=== PATIENT | male | born 1960 | race Caucasian/White ===

== ENCOUNTER 2021-05-05 14:22 | Inpatient (IN) | payer OTHER ==
[~2021-05-05] VITALS: Ht 182.9 cm; Wt 126.9 kg
[2021-05-05 14:52] VITALS: BP 115/82
[2021-05-05 15:17] LABS: ABSOLUTE NEUTROPHILS 8.7 thou/uL (1.4-8.2); BASOPHILS 1.1 % (0.0-2.0); EOSINOPHILS 1.1 % (0.0-3.0); HEMATOCRIT 36.7 % (42.0-52.0); HEMOGLOBIN 11.9 gm/dL (14.0-18.0); LYMPHOCYTES 15.6 % (24.0-44.0); MCH 28.5 pg (26.0-34.0); MCHC 32.4 g/dL (28.0-37.0); MCV 87.9 fL (80.0-100.0); MONOCYTES 3.5 % (1.0-8.0); PLATELET COUNT 437 thou/uL (150-400); POLYS 78.7 % (36.0-66.0); RBC 4.18 mil/uL (4.50-6.00); RDW 14.8 % (10.5-14.5); WBC 11.1 thou/uL (4.0-11.0)
[2021-05-05 15:30] LABS: CALCIUM 9.3 mg/dL (8.5-10.1); CREATININE 1.1 mg/dL (0.7-1.3); POTASSIUM 4.3 mmol/L (3.5-5.1)
[2021-05-05 15:33] LABS: ALBUMIN 2.9 g/dL (3.4-5.0)
[2021-05-05 16:17] LABS: TOTAL BILIRUBIN 0.1 mg/dL (0.2-1.0); TOTAL PROTEIN 7.9 g/dL (6.4-8.2)
[2021-05-05] MEDS ORDERED: CITALOPRAM HBR40 MG PO (17:25)
[2021-05-05 18:18] VITALS: BP 145/78
[2021-05-05 18:24] VITALS: BP 145/78
[2021-05-05 18:25] LABS: FOLIC ACID 15.1 ng/mL (8.6-58.9)
[2021-05-05 21:28] VITALS: BP 163/76
[2021-05-06 01:58] LABS: ABSOLUTE NEUTROPHILS 6.1 thou/uL (1.4-8.2); BASOPHILS 0.8 % (0.0-2.0); EOSINOPHILS 1.2 % (0.0-3.0); HEMATOCRIT 32.3 % (42.0-52.0); HEMOGLOBIN 10.5 gm/dL (14.0-18.0); MCH 28.5 pg (26.0-34.0); MCHC 32.5 g/dL (28.0-37.0); MCV 87.7 fL (80.0-100.0); MONOCYTES 4.8 % (1.0-8.0); POLYS 74.2 % (36.0-66.0); RBC 3.68 mil/uL (4.50-6.00); RDW 14.7 % (10.5-14.5); WBC 8.3 thou/uL (4.0-11.0)
[2021-05-06 02:11] LABS: CALCIUM 8.7 mg/dL (8.5-10.1); CREATININE 1.1 mg/dL (0.7-1.3); POTASSIUM 4.4 mmol/L (3.5-5.1)
[2021-05-06 02:13] LABS: PLATELET COUNT 351 thou/uL (150-400)
[2021-05-06 02:14] LABS: MAGNESIUM 0.8 mg/dL (1.8-2.4)
[2021-05-06 07:15] VITALS: BP 161/96
[2021-05-06 09:04] VITALS: BP 165/87
[2021-05-06 13:11] VITALS: BP 166/75
--- NOTE | 2021-05-06 15:48 | NUR ---
ASSUMED CARE OF PT AT 1304 THIS AFTERNOON. PT CAME UP FROM ER. PT IS A/OX4 WITH DIABETIC ALCERATIONS ON BILAT FEET. PARTIAL AMPUTAIONS ON LT FOOT AND CELLULITIS IN BILAT FEET. NO SCD'S DUE TO LEG WOUNDS. NO PAIN AT THIS TIME. ASSESSMENTS PERFORMED BY JAY ARMIJO. MEDS AND TX GIVEN NEEDED AND SWCHEDULED. CARE PLAN CREATED BY JAY ARMIJO AND IMPLEMENTED. PT IS UP INDEP AND NO FALL PRECAUTIONS ARE NEEDED. WILL CONTINUE TO MONITOR AND NOTE ANY CHANGES.
[2021-05-06 20:15] VITALS: BP 141/81
--- NOTE | 2021-05-07 04:54 | NUR ---
ASSUMED CARE AT 1915 OF 05/06. PATIENT IS A&OX4, DENIES PAIN OR SHORTNESS OF BREATH. ON IV ABX THERAPY FOR BILAT CELLULITIS OF FEET. DRESSING TO BILAT FEET ARE IN PLACE AND INTACT. PERIPHERAL IV SITE ON LEFT FOREARM IS INPLACE AND INTACT. NO S/S OF INFECTION OR INFILTRATION NOTED. PATIENTIS UP AD JARED IN ROOM AND HAS CALLED APPROPRIETLY FOR ANY NEEDS. TOLERATED ORAL MEDICATIONS WHOLE WITH THIN LIQUIDS. FALL PRECAUTIONS IN PLACE, CALL LIGHT WITHIN REACH. WILL CONTINUE TO MONITOR.
[2021-05-07 07:10] VITALS: BP 152/82
[2021-05-07 16:10] VITALS: BP 132/74
--- NOTE | 2021-05-07 19:32 | NUR ---
PT DENIES PAIN/DISCOMFORT. UP IN ROOM AD JARED. ABLE TO MAKE NEEDS KNOWN. NO ISSUES THIS SHIFT. CONTINUES WITH IV ATB'S
[2021-05-07 20:30] VITALS: BP 121/74
--- NOTE | 2021-05-08 03:56 | NUR ---
PT BEEN RESTING IN NO ACUTE DISTRESS.A/OX4.VSS.ON IV ANTIBIOTIC THERAPY FO JOVANNA LEGS CELLULITES.TOLERATING.DRESSING CDI TO JOVANNA FEET.ASSESSMENT COMPLETED DOCUMENTED.
[2021-05-08 07:00] VITALS: BP 143/76
--- NOTE | 2021-05-08 18:07 | NUR ---
PT RESTED COMFORTABLE IN BED THROUGHOUT SHIFT. TURNS SELF AND IS UP ADLIB ABLE TO GET TO RESTROOM WITHOUT ISSUE. DRESSING CHANGED ON BOTH FEET PER ORDER. INSULIN WAS INCREASED TO MODERATE SCALE PER PROTOCAL, ALSO ADDITIONAL LANTUS GIVING PER ORDERS. PT TOLERATED WELL WITHOUT ISSUES. PATIENT DENIED ANYU COMPLAINTS THROUGHOUT THE SHIFT.
[2021-05-08 19:07] VITALS: BP 139/72
[2021-05-09 04:23] VITALS: BP 141/68
--- NOTE | 2021-05-09 07:46 | NUR ---
ASSUMED CARE AT 1900, PT LAYING IN BED COMFORTABLY, REPORTS NO PAIN OR DISCOMFORT, IV INITAITED ON THE LEFT FOREARM, TOLARATED PROCEDURE WELL, COMPLIANT TO TX, NO ADVERSE REACTION, UP AD JARED, WOUND CARE COMPLETED, PENDING US, CALL LIGHT, AND PERSONAL BELONGINGS WITHIN REACH, MAKES NEEDS KNOWN, SLEPT THROUGH THE NIGHT WILL CONTINUE TO MONITOR.
[2021-05-09 08:14] VITALS: BP 129/83
--- NOTE | 2021-05-09 09:43 | NUR ---
Noted he was up in room adlib. no complaints voiced. He was being seen by outpt wound clinic. He is able to make his needs known. C & S still pending. Possible going to have I & D sun or sunday. Will cont following if needs arise.
--- NOTE | 2021-05-09 11:48 | HC ---
[facility] [place] [address] CONSULTATION Name: NANCY LEYVA Room #: 433-I ADM IN [facility].#: [id number] Admission: 05/05/21 Attend Phys: Wicho Loyd MD Discharge: Date of : 64 Report #: [id number] THIS REPORT FOR: cc: FAM - Family physician unknown FAM - Family physician unknown Clint Dixon MD ~ DATE OF SERVICE: 05/06/2021 CHIEF COMPLAINT: Diabetic foot infection. HISTORY OF PRESENT ILLNESS: This is a 61-year-old male patient who I saw in the wound clinic yesterday for the first time with progression of ulceration, necrosis and cellulitis of the left foot. He has had chronic ulceration on the plantar aspect and has developed increasing breakdown and drainage on the medial first MTP. He also has a neuropathic ulcer on the plantar aspect of the right foot. He denies pain, some very mild fever or chills at this time. He believes his diabetes has not been well controlled. PAST MEDICAL HISTORY: Positive for type 2 diabetes mellitus, borderline hypertension. He has had 2 prior surgical amputations of the 4th toes on both feet. MEDICATIONS: Include citalopram. ALLERGIES: PENICILLIN AND TETANUS AND DIPHTHERIA TOXOID. SOCIAL HISTORY: The patient is a nonsmoker. Admits to occasional alcohol consumption. FAMILY HISTORY: Noncontributory. REVIEW OF SYSTEMS: CONSTITUTIONAL: The patient denies fever, chills, or weight loss. NEUROLOGICAL: The patient denies focal weakness, numbness, or tingling, but does have neuropathy in both feet. EYES: The patient denies visual changes, redness, or drainage. ENT: The patient denies earache, nasal drainage, or sore throat. CARDIOVASCULAR: The patient denies chest pain, palpitations, or diaphoresis. PULMONARY: The patient denies cough or shortness of breath. GASTROINTESTINAL: The patient denies nausea, vomiting, diarrhea or abdominal pain. ORTHOPEDIC: The patient complains of drainage, redness, odor and ulceration to both feet, left greater than right. Others systems in a 14-point review of systems are negative. PHYSICAL EXAMINATION: [facility] [address] [place] [address] CONSULTATION Name: NANCY LEYVA Room #: 433-I [facility] IN [facility]#: [id number] Admission: 05/05/21 Attend Phys: Wicho Loyd MD Discharge: Date of : 64 Report #: [id number] VITAL SIGNS: Include temperature of 96.6, pulse 84, respiratory rate of 14, blood pressure 151/84. GENERAL: This is a well-developed, well-nourished patient, who appears to be in mild discomfort. HEENT: Head normocephalic. Nose and throat are clear. NECK: Supple. ABDOMEN: Soft, bowel sounds present. EXTREMITIES: Lower extremities demonstrate easily palpable distal pulses. Normal hair growth pattern. There is an ulceration on the plantar aspect of the right foot. There was callus yesterday which I pared back. There is no exposure of deep structures here. It is clean, granulating and no evidence of overt infection. The left foot, however, demonstrates a plantar ulcer as well as an ulceration with tissue necrosis involving the medial aspect of the first MTP region. Debridement was performed in the office yesterday. Outpatient culture was obtained, results are pending. There is a bit improvement in both the redness on the foot as well as the drainage and the appearance of a few buds of granulation tissue on the medial left foot today compared to yesterday. LABORATORY STUDIES: Include sodium 135, potassium 4.4, chloride 99, CO2 27, BUN 15, creatinine 1.1, glucose 271. White blood cell count 8.3 with a hemoglobin of 10.5. CT scan of the left lower extremity demonstrates induration and edema of the surrounding subcutaneous fat at the plantar mid foot towards the first MTP, suggestive of cellulitis. No fluid collection or soft tissue gas, nonspecific tenosynovitis. No evidence of periostitis or bony destruction. CLINICAL IMPRESSION: 1. Haile grade 3 diabetic ulceration to the left foot with surrounding cellulitis and wound infection and possible tenosynovitis. 2. Diabetic neuropathic ulcer, right foot, Haile grade 2. 3. Diabetes mellitus with hyperglycemia. 4. Morbid obesity. 5. Possible obstructive sleep apnea. RECOMMENDATIONS: At this point in time, we will start with topical gentamicin ointment, Xeroform, ABD, Kerlix and Bar wrap to both lower extremity ulcers. Empiric antibiotics have been started. Cultures are pending. We will appreciate Infectious Disease consultation. Hopefully, we can get the infection under better control and then continue with outpatient management on oral antibiotic. I appreciate being asked to see him and continue to follow him here in the hospital. <ELECTRONICALLY SIGNED> By: Clint Dixon MD 05/09/21 1148 [id number] 22 Clint Dixon MD /nt
--- NOTE | 2021-05-09 15:20 | NUR ---
ASSUMED PT CARE THIS AM. PT A&OX4, ABLE TO MAKE NEEDS KNOWN. PATIENT REMAINS CONTINENT AND IS UP AD JARED. PATIENT HAS DRESSINGS TO BILATERAL FEET THAT ARE C/D/I. PATIENT IV REMAINS PATENT. CALL LIGHT WITHIN REACH.
[2021-05-09 16:00] VITALS: BP 101/81
[2021-05-09 16:27] VITALS: BP 118/71
[2021-05-09 17:48] VITALS: BP 115/55
[2021-05-09 21:55] VITALS: BP 112/71
--- NOTE | 2021-05-10 04:47 | NUR ---
RECEIVED CARE OF THIS PATIENT AT 1900. PATIENT ALERT AND ORIENTED X4. UP AD JARED. DRESSING ON FEET D/I. C/O PAIN IN FEET, MED GIVEN.ACCUCHECK WAS 175. SLEPT MOST OF NIGHT.
[2021-05-10 05:53] LABS: ABSOLUTE NEUTROPHILS 4.6 thou/uL (1.4-8.2); BASOPHILS 0.8 % (0.0-2.0); EOSINOPHILS 1.1 % (0.0-3.0); HEMATOCRIT 34.2 % (42.0-52.0); HEMOGLOBIN 10.9 gm/dL (14.0-18.0); LYMPHOCYTES 20.7 % (24.0-44.0); MCH 28.1 pg (26.0-34.0); MCHC 31.9 g/dL (28.0-37.0); MCV 87.8 fL (80.0-100.0); MONOCYTES 6.2 % (1.0-8.0); PLATELET COUNT 328 thou/uL (150-400); POLYS 71.2 % (36.0-66.0); RBC 3.89 mil/uL (4.50-6.00); RDW 14.7 % (10.5-14.5); WBC 6.5 thou/uL (4.0-11.0)
[2021-05-10 06:14] LABS: CALCIUM 8.7 mg/dL (8.5-10.1); CREATININE 1.1 mg/dL (0.7-1.3); MAGNESIUM 1.2 mg/dL (1.8-2.4); POTASSIUM 4.4 mmol/L (3.5-5.1)
[2021-05-10 08:09] VITALS: BP 132/75
--- NOTE | 2021-05-10 09:14 | NUR ---
cm consult for home iv abx, spoke with delfino, he had home iv abx about 2 years ago, ok to send referral to [facility] home infusion to check benefits. Do not know what abx he will need yet, waiting on c & s to get back.
--- NOTE | 2021-05-10 13:05 | NUR ---
A #4F SINGLE LUMEN PICC WAS PLACED PER HOSPITAL POLICY AFTER A BEDSIDE TIMEOUT WAS COMPLETED. THE LINE WAS TRIMMED TO 45CM AND ADVANCED TO 1CM EXTERNAL. LINE WAS CONFIRMED WITH [employer] AND RELEASED FOR USE
--- NOTE | 2021-05-10 14:39 | NUR ---
PATIENT IS WALKING IN THE ROOM. RN ENCOURAGE TO AMBULATE OUT IN THE ST. RN CHANGED THE FEET WOUNDS DRESSING THIS MORNING. PICC LINE PLACED. WAITING FOR ANTIBIOTIC SET UP TO GO HOME. INSTRUCT PATIENT TO FOLLOW UP WITH INFECTIOUS DISEASE DOCTOR. CALL LIGHT WITHIN REACH, WILL CONTINOUS MONITORING.
[2021-05-10 15:53] VITALS: BP 127/79
[2021-05-10 19:15] VITALS: BP 156/64
--- NOTE | 2021-05-10 23:58 | HC ---
[facility] [place] [address] CONSULTATION Name: NANCY LEYVA John Room #: 433-I ADM IN [facility].#: [id number] Admission: 05/05/21 Attend Phys: Wicho Loyd MD Discharge: Date of : 64 Report #: [id number] THIS REPORT FOR: cc: FAM - Family physician unknown FAM - Family physician unknown Curtis Forde MD ~ DATE OF SERVICE: 05/06/2021 INFECTIOUS DISEASE CONSULTATION REASON FOR CONSULTATION: I was asked to evaluate concerning bilateral diabetic foot wound infection. HISTORY OF PRESENT ILLNESS: The patient is a 61-year-old with diabetes, peripheral neuropathy, and vasculopathy, who has had issues with diabetic foot infections in the past, presents now with worsening bilateral plantar foot wounds over the past week to 10 days. He was seen in the outpatient clinic where cultures were obtained and he was placed on clindamycin. Despite that, he has failed to improve and is now being admitted for further IV antibiotic therapy, wound care. He has had no fever, chills, or sweats. He has had a CT scan of the lower extremities, which has shown no evidence of osteomyelitis. He reports no recent arterial studies. He does report ALLERGY TO PENICILLIN AND AMOXICILLIN with swelling, although he does tolerate cephalosporins except for diarrhea. He was exposed to what he reports as dirty water in his basement at the onset of his wound development. Denies any cardiopulmonary, GI, or complaints. REVIEW OF SYSTEMS: A 14-point review of system was negative other than what has been described above. ALLERGIES: PENICILLIN with swelling of his lower extremities, TETANUS DIPHTHERIA TOXINS. MEDICATIONS: As noted on his MAR, having been started on vancomycin. PAST MEDICAL HISTORY: Diabetes, peripheral neuropathy, bilateral toe amputations. He has had hand surgery. FAMILY HISTORY: Negative for tuberculosis. SOCIAL HISTORY: Nonsmoker, no significant alcohol intake. PHYSICAL EXAMINATION: GENERAL: He is afebrile, hemodynamically stable, is alert, cooperative, pleasant. No acute distress. [address] [address] CONSULTATION Name: NANCY LEYVA John Room #: 433-I [facility] IN [facility]#: [id number] Admission: 05/05/21 Attend Phys: Wicho Loyd MD Discharge: Date of : 64 Report #: [id number] SKIN: Without rash. MUSCULOSKELETAL: Foot wounds were dressed and wrapped just prior to my arrival. I have reviewed his imaging studies. No palpable adenopathy. Pulses were palpable in the dorsalis pedis and popliteal as well as femoral regions. HEENT: Eyes without scleral icterus. Mouth without mucositis. LUNGS: Clear. HEART: Regular, without murmur. ABDOMEN: Obese, firm ventral hernia present. No masses. LABORATORY DATA: Reviewed. IMPRESSION: Bilateral diabetic foot wounds over the plantar aspect of his distal feet. Underlying diabetes with peripheral neuropathy and suspect: 1. Small vessel vasculopathy. 2. Obesity. RECOMMENDATION: We will continue broad antibiotic coverage. Await wound cultures that were obtained in the outpatient setting. Continue offloading and local wound care. Imaging studies by CT has been completed. We would also check arterial studies. Continue with diabetic management. <ELECTRONICALLY SIGNED> By: Curtis Forde MD 05/10/21 [id number] Curtis Forde MD /nt
--- NOTE | 2021-05-11 06:04 | NUR ---
RECEIVED CARE OF THIS PATIENT AT 1900. PATIENT ALERT AND ORIENT X4. UP AD JARED. ACCUCHECK WAS 310, INSULIN GIVEN. DRESSING ON JOVANNA FEET D/I. DENIES PAIN. SLEPT MOST OF NIGHT.
[2021-05-11 07:00] VITALS: BP 153/99
[2021-05-11] MEDS ORDERED: LEVEMIR FL100 UNIT/2 SUBQ (09:24)
[2021-05-11] MEDS ORDERED: METFORMIN HCL1000 MG PO (09:25)
[2021-05-11] MEDS ORDERED: NOVOLOG FL100 UNIT/M SUBQ (09:25)
[2021-05-11] MEDS ORDERED: JARDIANCE25 MG PO (09:26)
[2021-05-11] MEDS ORDERED: LISINOPRIL10 MG PO (09:33)
[2021-05-11] MEDS ORDERED: GENTAMICIN SULF15 GM TOP (09:33)
[2021-05-11] MEDS ORDERED: NEURONTIN 300M300 M2 PO (09:33)
[2021-05-11] MEDS ORDERED: ROCEPHIN 11 GM/1001 IV (09:34)
[2021-05-11 10:19] VITALS: BP 153/90
--- NOTE | 2021-05-11 10:52 | NUR ---
ASSUMED CARE OF PT AT 0700 THIS MORNING. PT IS A/OX4 AND HAS NO COMPLAINTS AT THIS TIME. PT IS UP INDEP AND IS NO RISK AT FALLING. ASSESSMENTS NOTED IN CHART AND OTHERWISE UNREMARKABLE. NO FALL PRECAUTIONS NEEDED. CALL LIGHT AND OTHER NEEDS ARE IN PLACE. PT IS BEING DISCHARGED LATER IN THE DAY. WAITING TO SEE ABOUT HOME ABX TX. MEDS AND TX GIVEN NEEDED AND SCHEDULED. WILL MONITOR AND NOTE ANY CHANGES,.
[2021-05-11 11:50] VITALS: BP 153/90
--- NOTE | 2021-05-11 15:10 | NUR ---
Options for iv atb discussed with the pt prior to dc and again this afternoon from home. Pt indicates he does not want to go to a SNF, he is not able to afford the copay for home infusion per [employer] as their is a $80 a day supply fee as well as medication copay. He and his fiance are able to manage his dressing changes and nursing has instructed him. He was open to outpt infusion here at [facility] and referral and orders were faxed to Judy. Cao from registration called back and indicates that the pt will have a $35.56 copay tomorrow when he checks in a the main registration. He can be billed after that. His deductable will reset on 05-14-21 which will likely increase the daily charge to approx $177 but he can be billed for this. With home infusion he would need to pay upfront for any supply/med delievery. Pt expressed frustration of outpt of pocket cost as he is on a fix income due to being disabled. Encouragment given to contact the business office to work out a payment plan as well as consider applying for [place]icaid which could help with copays. Pt will be here at 8:15am tomorrow at the main registration.Outpt infusion plan confirmed with all parties. Pt will have transport for morning appts. Haleigh fry vouchered today to facilite dc as his finance works until 8pm. Pt sent home with wound care supplies and will f/u in the wound clinic.
[2021-05-11 17:31] VITALS: BP 153/90
[2021-05-12] MEDS ORDERED: FREESTYLE LANC1 EACH MISCELL (09:58)
--- NOTE | 2021-05-12 10:49 | NUR ---
Pt here for outpt infusion and script vouched for needles for his insulin pen per the [facility].
== END 2021-05-11 12:47 | disposition home or self-care (01) | DRG 638 ==
LOC: ER 14:22 → EROBS 17:04 → 4S 17:04
PROVIDERS: Nurse Practitioner; Physician Assistant; ADMIT Hospitalist; ATTEND Hospitalist
PROC: 05HY33Z Insertion of Infusion Device into Upper Vein, Percutaneous Approach (ICD-10-PCS; principal; 2021-05-10)
DX: E11.621 Type 2 diabetes mellitus with foot ulcer (principal); L03.116 Cellulitis of left lower limb; E44.0 Moderate protein-calorie malnutrition; M31.9 Necrotizing vasculopathy, unspecified; L03.115 Cellulitis of right lower limb; L97.529 Non-pressure chronic ulcer of other part of left foot with unspecified severity; L97.519 Non-pressure chronic ulcer of other part of right foot with unspecified severity; M65.9 Synovitis and tenosynovitis, unspecified; E11.65 Type 2 diabetes mellitus with hyperglycemia; E66.01 Morbid (severe) obesity due to excess calories; G47.33 Obstructive sleep apnea (adult) (pediatric); E11.42 Type 2 diabetes mellitus with diabetic polyneuropathy; D64.9 Anemia, unspecified; F41.9 Anxiety disorder, unspecified; R53.81 Other malaise; Z20.822 Contact with and (suspected) exposure to COVID-19; Z88.0 Allergy status to penicillin; Z88.7 Allergy status to serum and vaccine; Z89.422 Acquired absence of other left toe(s); Z89.421 Acquired absence of other right toe(s); Z23 Encounter for immunization
CPT/HCPCS: 10195; 27000

== ENCOUNTER → 2021-05-05 | Outpatient (CLI) | payer OTHER ==
[~2021-05-05] MED LIST: CITALOPRAM HBR40 MG PO
== END ==
LOC: HYPER 12:46
PROVIDERS: ATTEND Emergency Medicine Emergency Medical Services
DX: E11.621 Type 2 diabetes mellitus with foot ulcer (principal); L97.422 Non-pressure chronic ulcer of left heel and midfoot with fat layer exposed; L97.512 Non-pressure chronic ulcer of other part of right foot with fat layer exposed; L97.521 Non-pressure chronic ulcer of other part of left foot limited to breakdown of skin; L84 Corns and callosities; L03.116 Cellulitis of left lower limb; E11.40 Type 2 diabetes mellitus with diabetic neuropathy, unspecified; E66.9 Obesity, unspecified; F41.9 Anxiety disorder, unspecified; Z68.38 Body mass index [BMI] 38.0-38.9, adult; Z79.4 Long term (current) use of insulin; Z79.82 Long term (current) use of aspirin; Z79.899 Other long term (current) drug therapy; Z98.52 Vasectomy status; Z98.890 Other specified postprocedural states

== ENCOUNTER → 2021-05-12 | Outpatient (CLI) | payer OTHER ==
[~2021-05-12] MED LIST changes: +FREESTYLE LANC1 EACH MISCELL; +GENTAMICIN SULF15 GM TOP; +JARDIANCE25 MG PO; +LEVEMIR FL100 UNIT/2 SUBQ; +LISINOPRIL10 MG PO; +METFORMIN HCL1000 MG PO; +NEURONTIN 300M300 M2 PO; +NOVOLOG FL100 UNIT/M SUBQ; +ROCEPHIN 11 GM/1001 IV
[2021-05-12 09:00] VITALS: BP 125/76
[2021-05-12 09:50] LABS: ABSOLUTE NEUTROPHILS 4.1 thou/uL (1.4-8.2); BASOPHILS 0.8 % (0.0-2.0); EOSINOPHILS 1.2 % (0.0-3.0); HEMATOCRIT 34.8 % (42.0-52.0); HEMOGLOBIN 11.1 gm/dL (14.0-18.0); LYMPHOCYTES 22.3 % (24.0-44.0); MCH 27.9 pg (26.0-34.0); MCV 87.1 fL (80.0-100.0); PLATELET COUNT 351 thou/uL (150-400); POLYS 67.7 % (36.0-66.0); RDW 14.8 % (10.5-14.5)
--- NOTE | 2021-05-12 10:00 | NUR ---
HERE FOR 1ST DAY OF OUTPATIENT IV ANTIBIOTIC THERAPY FOLLOWING AN INPATIENT STAY FOR BILAT DIABETIC FOOT ULCERS, SKIN AND SOFT TISSUE INFECTION. PICC LINE SITE LOOKS GOOD. DRESSING LOOSE SO NEW DRESSING APPLIED. LABS DRAWN. TOLERATED CEFTRIAXONE WITHOUT INCIDENT. PT VERY CONCERNED ABOUT COST OF TREATMENT AND HIS INABILITY TO AFFORD ONGOING IV THERAPY. UNDERSTANDS THAT, WITH THE NEW YEAR, HE WILL HAVE TO PAY $177/DAY UNTIL HE MEETS HIS DEDUCTIBLE THEN WILL HAVE TO PAY A PERCENTAGE OF CHARGES. WANTS TO TRY ORAL THERAPY AFTER TOMORROW'S DOSE. MESSAGE LEFT WITH DR. SANTOS'S OFFICE, ALFA, ABOUT THIS REQUEST. PT STATES HE HAS THE INFORMATION TO APPLY FOR OR MEDICAID. ENCOURAGED PT TO DO SO LORENZO. KEIRA, WET COTTON FEEDER, HAS ASKED VIKASH WITH [facility], TO F/U WITH PT SOON TO SEE IF HE NEEDS ANY ASSISTANCE. PT INFORMED THAT, WHILE OR MEDICAID IF APPROVED CAN PAY RETROACTIVELY, IT WILL NOT COVER OUTPATIENT EXPENSES AT A [facility]. PT QUITE DISTRESSED ABOUT ALL OF THIS. SPOKE WITH PT TO SEE IF HE HAD ANY QUESTIONS ABOUT HIS DISMISSAL ORDERS AND PLAN. ENCOURAGED HIM TO MAKE A CALL OR VISIT TODAY TO THE WOUND CARE CLINIC TO SET UP HIS F/U APPT WITH DR. BAEZ. PT ALSO PLANS TO MAKE AN APPT WITH DR. SANTOS IN HIS OFFICE. PT ADMITS THAT HE HAS NOT BEEN ABLE TO TAKE HIS PRESCRIBED INSULIN BECAUSE HE IS OUT OF NEEDLES FOR HIS INSULIN PEN. I CALLED THE HOSPITALIST OFFICE REGADING THIS AND THE HOSPITALIST WILL GET A SCRIPT TO OUR OUTPATIENT PHARMACY TO FILL FOR NEEDLES. KEIRA WITH CASE MANAGEMENT STATES SHE WILL VOUCH FOR THIS SO PT CAN START BACK ON HIS INSULIN TODAY. PT AGREES TO THIS PLAN. PT STATES HE HAS SUPPLIES AND EVERYTHING HE NEEDS FOR HOME WOUND CARE AND CAN DO THIS HIMSELF. STATES THE FOOT IS LOOKING MUCH BETTER THAN BEFORE ADMISSION. ENCOURAGED PT TO MAKE A F/U APPT WITH HIS PCP WITHIN THE NEXT WEEK OR SO. PT TOLERATED INFUSION WITHOUT INCIDENT. DISMISSED IN STABLE CONDITION--TAKEN BY THE VOLUNTEER TO THE OUTPATIENT PHARMACY TO CONCRETE BLOCK LAYER HIS INSULIN PEN NEEDLES ON HIS WAY OUT. PT SCHEDULED TO RETURN AGAIN IN THE MORNING AT 0800.
[2021-05-12 10:15] LABS: ALBUMIN 2.9 g/dL (3.4-5.0); CALCIUM 9.2 mg/dL (8.5-10.1); POTASSIUM 4.8 mmol/L (3.5-5.1); TOTAL BILIRUBIN 0.3 mg/dL (0.2-1.0)
--- NOTE | 2021-05-13 09:18 | NUR ---
PHONED PT THIS MORNING HE DID NOT SHOW UP FOR HIS INFUSION APPT. PT STATES OFFICE DID CALL HIM LATE TO LET HIM KNOW THAT DR. SANTOS WAS SWITCHING HIM TO ORAL DOXYCYCLINE WHICH HE WAS TO TRADE ECONOMIST THIS MORNING AND WILL START THIS MORNING. TOLD PT I WOULD CALL THE OFFICE SUNDAY TO CONFIRM PLAN AND SEE WHAT WE ARE TO DO WITH HIS PICC LINE. PT PLEASED WITH THIS SOLUTION.
== END ==
LOC: OPONC 08:26
PROVIDERS: ATTEND Specialist
DX: L08.9 Local infection of the skin and subcutaneous tissue, unspecified (principal); E11.621 Type 2 diabetes mellitus with foot ulcer; L97.511 Non-pressure chronic ulcer of other part of right foot limited to breakdown of skin; L97.521 Non-pressure chronic ulcer of other part of left foot limited to breakdown of skin
CPT/HCPCS: 95000

== ENCOUNTER → 2021-05-23 | Outpatient (CLI) | payer OTHER | LOC: HYPER 08:58 | PROVIDERS: ATTEND Emergency Medicine | DX: E11.621 Type 2 diabetes mellitus with foot ulcer (principal); L97.422 Non-pressure chronic ulcer of left heel and midfoot with fat layer exposed; L97.521 Non-pressure chronic ulcer of other part of left foot limited to breakdown of skin; L97.511 Non-pressure chronic ulcer of other part of right foot limited to breakdown of skin; E11.42 Type 2 diabetes mellitus with diabetic polyneuropathy; L03.116 Cellulitis of left lower limb; L84 Corns and callosities; E66.9 Obesity, unspecified; F41.9 Anxiety disorder, unspecified; Z68.38 Body mass index [BMI] 38.0-38.9, adult; Z79.4 Long term (current) use of insulin ==

== ENCOUNTER → 2021-06-06 | Outpatient (CLI) | payer OTHER | LOC: HYPER 07:57 | PROVIDERS: ATTEND Emergency Medicine Emergency Medical Services | DX: E11.621 Type 2 diabetes mellitus with foot ulcer (principal); L97.521 Non-pressure chronic ulcer of other part of left foot limited to breakdown of skin; L97.511 Non-pressure chronic ulcer of other part of right foot limited to breakdown of skin; E11.42 Type 2 diabetes mellitus with diabetic polyneuropathy; L03.116 Cellulitis of left lower limb; L84 Corns and callosities; E66.9 Obesity, unspecified; F41.9 Anxiety disorder, unspecified; Z79.4 Long term (current) use of insulin; Z68.38 Body mass index [BMI] 38.0-38.9, adult; Z79.82 Long term (current) use of aspirin; Z79.899 Other long term (current) drug therapy ==

== ENCOUNTER → 2021-06-20 | Outpatient (CLI) | payer OTHER | LOC: HYPER 08:43 | PROVIDERS: ATTEND Emergency Medicine Emergency Medical Services | DX: E11.621 Type 2 diabetes mellitus with foot ulcer (principal); L97.521 Non-pressure chronic ulcer of other part of left foot limited to breakdown of skin; L97.511 Non-pressure chronic ulcer of other part of right foot limited to breakdown of skin; L03.116 Cellulitis of left lower limb; E11.40 Type 2 diabetes mellitus with diabetic neuropathy, unspecified; L84 Corns and callosities; E66.9 Obesity, unspecified; F41.9 Anxiety disorder, unspecified; F79 Unspecified intellectual disabilities; Z68.38 Body mass index [BMI] 38.0-38.9, adult; Z79.4 Long term (current) use of insulin; Z79.82 Long term (current) use of aspirin; Z79.899 Other long term (current) drug therapy ==